=== PATIENT | female | born 1945 ===

== ENCOUNTER 2023-02-18 22:00 | Emergency (ER) | payer OTHER, BC ==
[2023-02-18 22:43] LABS: Absolute Lymphocytes (CBC) 0.8 K/uL (0.7-4.9); Hematocrit 39.7 % (36.0-45.0); Lymphocytes % 8.3 % (15.3-44.8); MCV 87.8 fL (80-100); MPV 7.4 fL (7.6-11.3); Platelets 237 thou/uL (152-406); RBC Red Blood Cell Count 4.52 M/uL (3.86-4.86)
[2023-02-18 22:44] LABS: Protime INR 1.05
[2023-02-18 23:06] LABS: ALT/SGPT 15 U/L (13-56); AST/SGOT 11 U/L (15-37); Albumin 3.9 g/dL (3.4-5.0); Alkaline Phosphatase 79 U/L (45-117); BUN Blood Urea Nitrogen 5 mg/dL (7-18); Bicarbonate 32 mEq/L (21-32); Bilirubin Direct 0.1 mg/dL (0-0.2); Bilirubin Indirect, Calculated 0.3 mg/dL (0.2-0.8); Bilirubin Total 0.4 mg/dL (0.2-1.0); Glomerular Filtration Rate 92 ml/min (=/>90); Glucose Level 148 mg/dL (74-106); Potassium 3.8 mEq/L (3.5-5.1); Protein, Total 7.4 g/dL (6.4-8.2); Sodium Level 137 mEq/L (136-145)
[2023-02-19 00:18] LABS: Barbiturates NEGATIVE (NEGATIVE); Benzodiazepines NEGATIVE (NEGATIVE); Cocaine NEGATIVE (NEGATIVE); METHAMPHETAM NEGATIVE (NEGATIVE); Methadone NEGATIVE (NEGATIVE); Opiates NEGATIVE (NEGATIVE); Phencyclidine NEGATIVE (NEGATIVE); THC Cannibis NEGATIVE (NEGATIVE)
[2023-02-19 00:19] LABS: Specific Gravity 1.019 (1.005-1.030); Urine Bacteria <20 /HPF (<20); Urine Bilirubin NEGATIVE (Negative); Urine Blood Negative (Negative); Urine Clarity Extremely Turbid (Clear); Urine Color Light-Yellow (Yellow); Urine Glucose NEGATIVE (Negative); Urine Mucus 2+ /HPF (None Seen); Urine Protein TRACE (Negative); Urine RBC <5 /HPF (None Seen); Urine Urobilinogen Normal (Normal); Urine pH 5.5 (5.0-7.0)
[2023-02-19] MEDS ORDERED: LORAZEPAM 1 MG TABLET ONE (02:37)
--- NOTE | 2023-02-19 03:36 | EDPHYS ---
Physician Documentation [facility] Name: Carol Murrieta Age: 78 yrs Sex: Female : 1945 Arrival Date: 02/18/2023 Time: 22:00 Bed 5 Private MD: ED Physician Janusz Alston HPI: 02/18 22:06 This 78 yrs old Female presents to ER via Unassigned with complaints of sp4 INGESTION. 02/19 02:14 This is a 78-year-old female with history of depression and anxiety history of chronic sp4 pain is well on tramadol. Patient originally called ambulance about her who was acutely delirious. On arrival of an ambulance patient has reported that she consumed 40 tramadol tablets 2 days ago in order to as described acute emotional pain, and also because she did not want to live any longer. Patient has mentioned multiple times to the EMS that she has intent to harm herself. . Historical: - Allergies: 02/18 22:43 No Known Allergies; jj7 - PMHx: 22:43 Depressive disorder; Anxiety; jj7 - Immunization history:: Adult Immunizations up to date. - Social history:: Smoking status: Patient denies any tobacco usage or history of. Patient uses alcohol, occasionally. - Family history:: not pertinent. ROS: 02/19 02:14 Constitutional: Negative for fever, chills, and weight loss, positive suicidal ideation sp4 with suicide plan, positive depressed mood and emotional upset All other systems are negative, Exam: 02/18 22:43 ECG was reviewed by the Attending Physician. EKG today 0, there is normal sinus sp4 rhythm with no ST elevation or depression, right bundle branch block otherwise normal EKG 02/19 02:18 Constitutional: This is a well developed, well nourished patient who is awake, alert, sp4 and in no acute distress. Appears to be in depressed mood Head/Face: Normocephalic, atraumatic. Eyes: Pupils equal round and reactive to light, extra-ocular motions intact. Lids and lashes normal. Conjunctiva and sclera are not injected. Cornea within normal limits. Periorbital areas with no swelling, redness, or edema. ENT: Nares patent. No nasal discharge, no septal abnormalities noted. Tympanic membranes are normal and external auditory canals are clear. Oropharynx with no redness, swelling, or masses, exudates, or evidence of obstruction, uvula midline. Mucous membranes moist. Neck: Trachea midline, no thyromegaly or masses palpated, and no cervical lymphadenopathy. Supple, full range of motion without nuchal rigidity, or vertebral point tenderness. Chest/axilla: Normal chest wall appearance and motion. Nontender with no deformity. No lesions are appreciated. Cardiovascular: Regular rate and rhythm with a normal S1 and S2. No gallops, murmurs, or rubs. Normal PMI, no JVD. No pulse deficits. Respiratory: Lungs have equal breath sounds bilaterally, clear to auscultation and percussion. No rales, rhonchi or wheezes noted. No increased work of breathing, no retractions or nasal flaring. Abdomen/GI: Soft, non-tender, with normal bowel sounds. No distension or tympany. No guarding or rebound. No evidence of tenderness throughout. Back: No spinal tenderness. No costovertebral tenderness. Skin: Warm, dry with normal turgor. Normal color with no rashes, no lesions, and no evidence of cellulitis. MS/ Extremity: Pulses equal, no cyanosis. Neurovascular intact. Full, normal range of motion. Neuro: Awake and alert, GCS 15, oriented to person, place, time, and situation. Cranial nerves II-XII grossly intact. Motor strength 5/5 in all extremities. Sensory grossly intact. Psych: Awake, alert, with orientation to person, place and time. Behavior, mood, and affect are within normal limits Vital Signs: 02/18 22:00 BP 159 / 79; Pulse 86; Resp 15; Pulse Ox 100% ; Weight 68.04 kg; Height 5 ft. 5 in. ; [facility] 02/19 01:56 BP 115 / 74; Pulse 90; Resp 17; Pulse Ox 100% ; 7 04:00 BP 121 / 70; Pulse 78; Resp 17; Pulse Ox 96% ; 7 06:00 BP 116 / 72; Pulse 72; Resp 16; Pulse Ox 93% on 2 lpm NC; j7 07:00 BP 107 / 81; Pulse 71; Resp 14 S; Temp 97.7(TE); Pulse Ox 100% on 2 lpm NC; 5 11:30 BP 112 / 75; Pulse 72; Resp 16 S; Temp 97.5(TE); Pulse Ox 95% on R/A; aa5 02/18 22:00 Body Mass Index 24.96 (68.04 kg, 165.1 cm) jj7 MDM: 02/18 22:05 Patient medically screened. kb 02/19 02:19 Differential Diagnosis altered mental status, sepsis, flu. Data reviewed: vital signs, sp4 nurses notes, EMS record, old medical records, lab test result(s), EKG, radiologic studies, CT scan. 03:32 Consideration of Admission/Observation Escalation of care including sp4 admission/observation considered. Management of patient was discussed with the following: Behavioral Health Provider: Accepting Psychiatrist . ED course: Patient was monitored in emergency room and history revealed no adverse outcomes. Patient was given p.o. Ativan 1 mg to help with insomnia . Secondary to serious suicide attempt via overdose by tramadol patient warrants admission to psychiatric hospital for further evaluation.. 04:10 ED course: CT head today reveals no acute intracranial findings. Of note CT was sp4 completed at 2214 in the evening and the read as 03:24 in AM . 02/18 22:06 Order name: Acetaminophen; Complete Time: 00:40 kb 02/18 22:06 Order name: Basic Metabolic Panel; Complete Time: 00:40 kb 02/18 22:06 Order name: CBC with Diff; Complete Time: 00:40 kb 02/18 22:06 Order name: ETOH Level; Complete Time: 00:40 kb 02/18 22:06 Order name: Hepatic Function; Complete Time: 00:40 kb 02/18 22:06 Order name: PT-INR; Complete Time: 00:40 kb 02/18 22:06 Order name: Ptt, Activated; Complete Time: 00:40 kb 02/18 22:06 Order name: Salicylate; Complete Time: 00:40 kb 02/18 22:06 Order name: Urinalysis w/ reflexes; Complete Time: 00:40 kb 02/18 22:06 Order name: Urine Drug Screen; Complete Time: 00:40 kb 02/19 00:25 Order name: Urine Culture EDMS 02/19 02:21 Order name: COVID-19 SARS RT PCR; Complete Time: 03:32 sp4 02/18 22:14 Order name: CT Head Brain wo Cont sp4 02/18 22:06 Order name: EKG; Complete Time: 22:06 kb 02/18 22:06 Order name: EKG - Nurse/Tech; Complete Time: 22:52 kb 02/18 22:06 Order name: IV Saline Lock; Complete Time: 22:52 kb 02/18 22:06 Order name: Labs collected and sent; Complete Time: 22:52 kb 02/18 22:06 Order name: Suicide Precautions; Complete Time: 22:52 kb 02/18 22:06 Order name: Suicide Screening ([place]); Complete Time: 22:52 kb EC/06 22:43 Rate is 83 beats/min. Rhythm is regular, Normal Sinus Rhythm. QRS [place] is Normal. DC sp4 interval is normal. QRS interval is prolonged. QT interval is normal. No Q waves. T waves are Normal. No ST changes noted. Clinical impression: Normal ECG. Interpreted by me. Reviewed by me. Administered Medications: 02/19 07:49 Discontinued: ns 0.9% 1000 ml IV at 125 ml/hr continuous aa5 02/18 23:04 Drug: NS 0.9% IV 1000 ml IV at 125 ml/hr continuous Route: IV; Rate: 125 ml/hr; Site: [facility] left antecubital; 02/19 02:25 Drug: LORazepam PO 1 mg PO once Route: PO; j 03:30 Follow up: Response: Marked relief of symptoms jj7 Disposition Summary: 02/19/23 03:35 Transfer Ordered Notes: Transfer Location: Psych Facility sp4 Reason: Higher level of care sp4 Condition: Stable sp4 Problem: new sp4 Symptoms: have improved sp4 Accepting Physician: Accepting psychiatrist(02/19/23 12:00) jl7 Diagnosis - Suicide attempt sp4 - Acute depressive episode, impulse control disorder sp4 Forms: - Medication Reconciliation Form sp4 - SBAR form sp4 Signatures: Dispatcher [employer] Jody Champagne FNP-C FNP-Balaji Mcdonnell RN RN jl7 Bari Mckinney RN RN jj7 Janusz Alston MD MD sp4 Corrections: (The following items were deleted from the chart) 12:00 03:35 Accepting psychiatrist sp4 jl7
--- NOTE | 2023-02-19 03:36 | ER ---
Nurse's Notes [facility] Name: Carol Bailey Age: 78 yrs Sex: Female : 1945 Arrival Date: 02/18/2023 Time: 22:00 Bed 5 Private MD: Diagnosis: Suicide attempt;Acute depressive episode, impulse control disorder Presentation: 02/18 22:00 Chief complaint: Patient states: PT STATES SHE TOOK 40 TRAMADOL TO HELP WITH THE PAIN. jj7 WHEN QUESTIONED WHAT PAIN SHE STATED TO HELP WITH HER MENTAL PAIN. STATES SHE HAS BEEN OVERWHELMED. EMS states: EMS STATES SHE CALLED THEM TO DIRECTOR PERIOPERATIVE HER AND WHILE ASKING HER QUESTIONS SHE STATES TO THEM SHE TOOK 40 TRAMADOL PILLS 2 DAYS AGO BECAUSE SHE WAS FEELING OVERWHELMED SINCE HER CAME BACK HOME FROM A SENIOR LIVING. EMS STATES THEY CALLED POISON CONTROL AND THEY WERE INFORMED TO GIVE FLUIDS AND OFFER SUPPORTIVE CARE. Coronavirus screen: At this time, the client does not indicate any symptoms associated with coronavirus-19. Ebola Screen: No symptoms or risks identified at this time. Initial Sepsis Screen: Does the patient meet any 2 criteria? No. Patient's initial sepsis screen is negative. Does the patient have a suspected source of infection? No. Patient's initial sepsis screen is negative. Risk Assessment: Do you want to hurt yourself or someone else? Patient reports desire/thoughts of hurting themselves or someone else. Provider notified. 22:00 Method Of Arrival: EMS: [facility] jj7 22:00 Acuity: JUAN JOSE 2 jj7 Triage Assessment: 22:00 General: Appears in no apparent distress. comfortable, Behavior is cooperative, jj7 appropriate for age, drowsy. Pain: Denies pain. Neuro: No deficits noted. Historical: - Allergies: 22:43 No Known Allergies; jj7 - PMHx: 22:43 Depressive disorder; Anxiety; jj7 - Immunization history:: Adult Immunizations up to date. - Social history:: Smoking status: Patient denies any tobacco usage or history of. Patient uses alcohol, occasionally. - Family history:: not pertinent. Screenin:00 [facility] ED Fall Risk Assessment (Adult) History of falling in the last 3 months, jj7 including since admission No falls in past 3 months (0 pts) Confusion or Disorientation No (0 pts) Intoxicated or Sedated No (0 pts) Impaired Gait No (0 pts) Mobility Assist Device Used No (0 pt) Altered Elimination No (0 pt) Score/Fall Risk Level 0 - 2 = Low Risk Oriented to surroundings, Maintained a safe environment, Educated pt \T\ family on fall prevention, incl call for assistance when getting out of bed. Abuse screen: Denies threats or abuse. Nutritional screening: No deficits noted. Tuberculosis screening: No symptoms or risk factors identified. Assessment: 22:00 Reassessment: SEE TRIAGE ASSESSMENT. jj7 02/19 00:00 Reassessment: Patient is alert, oriented x 3, equal unlabored respirations, skin jj7 warm/dry/pink. 02:00 Reassessment: Patient is alert, oriented x 3, equal unlabored respirations, skin jj7 warm/dry/pink. 04:00 Reassessment: Patient is alert, oriented x 3, equal unlabored respirations, skin jj7 warm/dry/pink. 06:24 Reassessment: [facility] ON PHONE WITH MRS BAILEY DOING TELEHEALTH. jj7 07:00 Reassessment: Patient is alert, oriented x 3, equal unlabored respirations, skin aa5 warm/dry/pink. 07:03 Reassessment: REPORT GIVEN TO DIANE ALMANZA AND LEN RN. jj7 07:40 Reassessment: Pt's belongings currently at nurse's station, inventory taken and given aa5 to security for safe keeping. Belongings are as follow: pants, shirt, and undergarment, witnessed by Pia Orellana RN. 08:00 Reassessment: Report given to Vicki becker [facility] [place], [place]. . aa5 08:45 Reassessment: Patient is alert, oriented x 3, equal unlabored respirations, skin aa5 warm/dry/pink. Pt sitting up in bed eating breakfast. . 09:11 Reassessment: Dr. Mart currently at bedside speaking to pt about need to transfer to a aa5 psych facility. Pt agrees. . 11:48 Reassessment: Patient is alert, oriented x 3, equal unlabored respirations, skin aa5 warm/dry/pink. Vital Signs: 02/18 22:00 BP 159 / 79; Pulse 86; Resp 15; Pulse Ox 100% ; Weight 68.04 kg; Height 5 ft. 5 in. ; j7 02/19 01:56 BP 115 / 74; Pulse 90; Resp 17; Pulse Ox 100% ; j7 04:00 BP 121 / 70; Pulse 78; Resp 17; Pulse Ox 96% ; j7 06:00 BP 116 / 72; Pulse 72; Resp 16; Pulse Ox 93% on 2 lpm NC; jj7 07:00 BP 107 / 81; Pulse 71; Resp 14 S; Temp 97.7(TE); Pulse Ox 100% on 2 lpm NC; aa5 11:30 BP 112 / 75; Pulse 72; Resp 16 S; Temp 97.5(TE); Pulse Ox 95% on R/A; aa5 02/18 22:00 Body Mass Index 24.96 (68.04 kg, 165.1 cm) [facility] ED Course: 02/18 22:00 Safety Checks: Personal items have been removed. ALL ITEMS REMOVED BY MARY COURTESY CLERK The [facility] door is open or patient has been placed in a hallway bed/chair. There are no family/friend visitors at this time Sitter present at this time. 22:00 Arm band placed on right wrist. Patient placed in an exam room, on a stretcher, on j7 manager monitoring, on pulse oximetry. 22:00 Patient has correct armband on for positive identification. Side rails up X2. Patient jj7 is placed in psych hold. 22:00 Maintain EMS IV. Dressing intact. Good blood return noted. Site clean \T\ dry. Gauge \T\ jj 7 site: 20 LEFT AC. 22:04 Patient arrived in ED. bp 22:05 Jody Carter FNP-C is PHCP. kb 22:05 Janusz Alston MD is Attending Physician. kb 22:43 Triage completed. jj7 22:53 Acetaminophen Sent. jj7 22:53 Basic Metabolic Panel Sent. jj7 22:53 ETOH Level Sent. jj7 22:53 Hepatic Function Sent. jj7 22:53 Urinalysis w/ reflexes Sent. jj7 22:53 Salicylate Sent. jj7 22:53 Urine Drug Screen Sent. jj7 02/19 01:07 CT Head Brain wo Cont In Process Unspecified. EDMS 01:45 contacted [facility]. jr12 05:05 Katina from [facility] returned call stating they have had a busy night and will be jr12 making a telehealth call in 45min to evaluate patient. 06:22 Katina from [facility] returned call to do Telehealth evaluation with patient. jr12 10:43 pt accepted in transfer to [facility] by dr Navarro admin approval bd given by Beata Lay. 10:53 spoke with [facility] with ems no truck avaliable at this time. [facility] ems with transport pt bd to [facility]. 11:30 No provider procedures requiring assistance completed. IV discontinued, intact, aa5 bleeding controlled, No redness/swelling at site. Pressure dressing applied. Administered Medications: 07:49 Discontinued: ns 0.9% 1000 ml IV at 125 ml/hr continuous aa5 02/18 23:04 Drug: NS 0.9% IV 1000 ml IV at 125 ml/hr continuous Route: IV; Rate: 125 ml/hr; Site: [facility] left antecubital; 02/19 02:25 Drug: LORazepam PO 1 mg PO once Route: PO; jj7 03:30 Follow up: Response: Marked relief of symptoms jj7 Medication: 02/18 23:14 VIS not applicable for this client. jj7 Outcome: 02/19 03:35 ER care complete, transfer ordered by . sp4 11:48 Transferred by ground EMS Transfer form completed. X-rays sent w/ patient. Note: aa5 Transferred to [facility]. Report given to [facility]. 11:48 Condition: stable 11:48 Instructed on the need for transfer, Demonstrated understanding of 11:50 Patient left the ED. aa5 Signatures: Dispatcher [employer] EDMS Jody Carter, MOISÉS ARCHIVAL RECORDS CLERK-Kaykay Cole Audri RN RN aa5 Balaji Perdue RN RN jl7 Madan Mclean RN RN bp Johnson, Juwairiyah, RN RN jj7 Janusz Alston MD MD sp4 Lexi Lindquist jr12 Corrections: (The following items were deleted from the chart) 02/18 22:48 22:43 Arm band placed on right wrist. Patient placed in an exam room, on a stretcher, jj7 on manager monitoring, on pulse oximetry, jj7 22:43 General: Appears in no apparent distress. comfortable, Behavior is cooperative, jj7 appropriate for age, drowsy, jj7 22:43 Pain: Denies pain. jj7 jj7 22:43 Neuro: No deficits noted. jj7 jj7 02/19 12:06 12:00 Patient left the ED. jl7 aa5
[2023-02-19 12:14] VITALS: BP 107/81; TEMP 97.7; O2SAT 100
--- NOTE | 2023-02-20 14:35 | RAD REPORT ---
EXAM DESCRIPTION: CT - Head Brain Wo Cont - 02/19/2023 6:41 am CLINICAL HISTORY: Confusion COMPARISON: None. TECHNIQUE: CT HEAD WITHOUT IV CONTRAST on 02/18/2023 10:14 PM HVAC ESTIMATOR This exam was performed according to our departmental dose-optimization program, which includes autom ated exposure control, adjustment of the mA and/or kV according to patient size and/or use of iterati ve reconstruction technique. FINDINGS: There is no acute hemorrhage, mass effect or midline shift. Davalos-white differentiation is preserved. There is no hydrocephalus. There is no significant volume loss for age. The calvarium is intact. Orbits and globes are unremarkable. The paranasal sinuses are clear. Mastoid air cells are clear. IMPRESSION: No acute intracranial findings. Electronically signed by: Víctor Daley MD 02/19/2023 03:24 AM HVAC ESTIMATOR Due to temporary technical issues with the PACS/Fluency reporting system, reports are being signed by the in house radiologists without review as a courtesy to insure prompt reporting. The interpreting radiologist is fully responsible for the content of the report.
--- NOTE | 2023-02-23 14:28 | EKG ---
Test Date: 2023-02-18 Test Time: 22:40:12 Feeder Associate: MEASUREMENT RESULTS: Intervals: Rate: 83 KS: 158 QRSD: 106 QT: 396 QTc: 465 [place]: P: 78 KS: 158 QRS: 73 T: 62 INTERPRETIVE STATEMENTS: Normal sinus rhythm Incomplete right bundle branch block Borderline ECG No previous ECG available for comparison Electronically Signed On 02-23-23 14:16:27 BROKE MAN by Abhinav Akins
== END 2023-02-19 12:00 ==
LOC: ER 22:00
DX: T40.422A Poisoning by tramadol, intentional self-harm, initial encounter (principal); F32.A Depression, unspecified; F63.9 Impulse disorder, unspecified; F41.9 Anxiety disorder, unspecified; Z11.52 Encounter for screening for COVID-19
CPT/HCPCS: 36415; 70450; 80048; 80076; 80143; 80179; 80307; 81001; 82077; 85025; 85610; 85730; 87077; 87086; 87088; 87186; 87635; 93005; 99285